=== PATIENT | male | born 1990 | race Caucasian/White ===

== ENCOUNTER 2022-10-03 11:51 | Emergency (ER) | payer OTHER ==
[~2022-10-03] VITALS: Ht 182.9 cm; Wt 85.5 kg
[2022-10-03 12:18] VITALS: BP 137/81
== END 2022-10-03 12:20 | disposition home or self-care (01) ==
LOC: ER 11:52
DX: Z77.21 Contact with and (suspected) exposure to potentially hazardous body fluids (principal)
CPT/HCPCS: 99281